=== PATIENT | female | born 1990 | race Caucasian/White ===

== ENCOUNTER 2016-10-22 12:08 | Emergency (ER) | payer BC ==
[2016-10-22 12:36] LABS: URINE SOURCE CLEAN CATCH
[2016-10-22 12:45] LABS: URINE APPEARANCE CLEAR; URINE BILIRUBIN NEG (NEG); URINE BLOOD NEG (NEG); URINE COLOR ORANGE; URINE GLUCOSE NEG (NEG); URINE KETONE NEG (NEG); URINE LEUKOCYTE ESTERASE NEG (NEG); URINE NITRATE NEG (NEG); URINE PROTEIN NEG (NEG); URINE UROBILINOGEN 0.2 MG/DL (NEG)
[2016-10-22 12:56] LABS: CULTURE INDICATED? NO
== END 2016-10-22 13:43 | disposition home or self-care (01) ==
LOC: CED 12:08
PROVIDERS: Nurse Practitioner
DX: R10.9 Unspecified abdominal pain (principal); J45.909 Unspecified asthma, uncomplicated; Z90.89 Acquired absence of other organs
CPT/HCPCS: 81003; 99284